=== PATIENT | female | born 1990 | race Hispanic/Latino ===

== ENCOUNTER 2018-06-09 12:50 | Emergency (ER) | payer OTHER ==
[2018-06-09] MEDS ORDERED: ACETAMINOPHEN EXTRA STRENGTH 500 MG TABLET ONE (13:23)
== END 2018-06-09 14:31 | disposition home or self-care (01) ==
LOC: EDH 12:50
DX: J11.1 Influenza due to unidentified influenza virus with other respiratory manifestations (principal); J45.909 Unspecified asthma, uncomplicated; Z72.0 Tobacco use; Z98.890 Other specified postprocedural states